=== PATIENT | male | born 1960 | race Caucasian/White ===

== ENCOUNTER 2017-01-30 17:05 | Inpatient (IN) | payer MEDICARE, MEDICAID ==
[~2017-01-30] VITALS: Ht 170.2 cm; Wt 47.5 kg
[2017-01-30] MEDS ORDERED: SODIUM CHLORIDE 0.9% 1,000 ML IV ONE (17:46)
[2017-01-30] MEDS ORDERED: SODIUM CHLORIDE FLUSH 10ML SYR IVF ONE (18:00)
[2017-01-30] MEDS ORDERED: SODIUM CHLORIDE 0.9% 1,000ML IVBOLUS ONE (18:00)
[2017-01-30] MEDS ORDERED: ALBUTEROL/IPRATROPIUM 2.5MG/0.5MG, 3 ML ONE (18:06)
[2017-01-30] MEDS: ALBUTEROL/IPRATROPIUM 2.5MG/0.5MG, 3 ML NPPB SCH ×2 (18:14→18:15)
[2017-01-30 18:37] LABS: BLOOD UREA NITROGEN 12 mg/dL (7-18)
[2017-01-30 18:40] LABS: ASPARTATE AMINO TRANSFERASE 27 U/L (15-37)
[2017-01-30 18:48] LABS: IS PT STATUS REG ER OR PRE ER? YES
[2017-01-30 20:51] VITALS: BP 176/89
[2017-01-30] MEDS ORDERED: DOCUSATE 100 MG CAPSULE PO PRN (22:30)
[2017-01-30] MEDS ORDERED: ACETAMINOPHEN 325 MG TABLET PO PRN (22:30)
[2017-01-30] MEDS ORDERED: TEMAZEPAM 15 MG CAPSULE PO PRN (22:30)
[2017-01-30] MEDS ORDERED: GUAIFENESIN/DM 200-20MG, 10ML UDC PO PRN (22:30)
[2017-01-30] MEDS ORDERED: ALBUTEROL/IPRATROPIUM 2.5MG/0.5MG, 3 ML NPPB SCH (23:00)
[2017-01-31 02:12] VITALS: BP 116/78
[2017-01-31] MEDS ORDERED: ALBUTEROL/IPRATROPIUM 2.5MG/0.5MG, 3 ML NPPB PRN (04:00)
[2017-01-31 06:25] LABS: BLOOD UREA NITROGEN 12 mg/dL (7-18)
[2017-01-31 06:37] VITALS: BP 143/88
[2017-01-31] MEDS ORDERED: GADOBUTROL 7.5 MMOL/7.5 ML PFS ONE (14:53)
[2017-01-31 15:08] VITALS: BP 152/83
[2017-01-31 20:53] VITALS: BP 136/83
[2017-02-01 02:51] VITALS: BP 132/95
[2017-02-01 04:58] LABS: ASPARTATE AMINO TRANSFERASE 19 U/L (15-37); BLOOD UREA NITROGEN 12 mg/dL (7-18)
[2017-02-01 06:30] VITALS: BP 136/81
[2017-02-01 12:52] VITALS: BP 128/87
[2017-02-01] MEDS ORDERED: HALO5TAB5 PO (15:53)
[2017-02-01] MEDS ORDERED: ESCI10TA10 PO (16:00)
[2017-02-01] MEDS ORDERED: DIVA500T4 PO (16:00)
[2017-02-01] MEDS ORDERED: BUPR150T73 PO (16:00)
[2017-02-01] MEDS ORDERED: BENZ2AMP4 PO (16:00)
[2017-02-01 18:22] VITALS: BP 119/79
== END 2017-02-01 18:25 | disposition hospice, home (50) | DRG 552 ==
LOC: ED 20:00 → EDIP 20:01 → 4NOR 20:25
PROVIDERS: ADMIT Internal Medicine; ATTEND Internal Medicine
DX: M48.06 Spinal stenosis, lumbar region (principal); F20.0 Paranoid schizophrenia; E44.1 Mild protein-calorie malnutrition; Z68.1 Body mass index [BMI] 19.9 or less, adult; R62.7 Adult failure to thrive; I10 Essential (primary) hypertension; D64.9 Anemia, unspecified; E86.0 Dehydration; M51.36 Other intervertebral disc degeneration, lumbar region; F17.210 Nicotine dependence, cigarettes, uncomplicated; R73.9 Hyperglycemia, unspecified; R13.10 Dysphagia, unspecified; Z51.5 Encounter for palliative care; Z99.81 Dependence on supplemental oxygen
CPT/HCPCS: 36415; 71010; 72158; 80048; 80053; 80164; 81001; 83605; 83735; 83880; 84436; 84443; 84484; 85025; 93005; 94640; 96360; 96361; A9585; J7620; J7030; J7512